=== PATIENT | female | born 1955 ===

== ENCOUNTER 2023-02-24 08:00 | Inpatient (IN) | payer MEDICARE, BC ==
[2023-02-27] MEDS ORDERED: Bacitracin Zinc Ointment 30 gm TUBE ONE (06:07)
[2023-02-27] MEDS ORDERED: EPINEPHrine 1 MG/ML AMP ONE (06:07)
[2023-02-27] MEDS ORDERED: Thrombin 5000 UNITS/5 ML VIAL ONE ×3 (06:07→08:26)
[2023-02-27] MEDS ORDERED: Lidocaine 1% (PF) 30 ML VIAL ONE (06:07)
[2023-02-27] MEDS ORDERED: Lidocaine 1% MPF 2 ML VIAL ONE (06:38)
[2023-02-27] MEDS ORDERED: Lidocaine 2% 6 ML (Jelly) SYR ONE (06:50)
[2023-02-27] MEDS ORDERED: Fentanyl 250 MCG/5 ML VIAL ONE (06:50)
[2023-02-27] MEDS ORDERED: SUGAMMADEX SODIUM 200 MG/2 ML VIAL ONE (06:50)
[2023-02-27] MEDS ORDERED: Clindamycin/D5W 900 mg/50 ml Premix Bag ONE (06:55)
[2023-02-27] MEDS ORDERED: LevoFLOXacin 500 mg/D5W 100 ML BAG ONE (06:55)
[2023-02-27] MEDS ORDERED: Phenylephrine 10 MG/ML VIAL ONE (06:55)
[2023-02-27] MEDS ORDERED: Dexamethasone 20 MG/5 ML VIAL ONE (07:20)
[2023-02-27] MEDS ORDERED: NEOSTIGMINE 3 MG/3 ML SYR 3 MG/3 ML SYRINGE ONE (07:20)
[2023-02-27] MEDS ORDERED: Glycopyrrolate 0.2 MG/ML 5 ML SYRINGE ONE (07:20)
[2023-02-27] MEDS ORDERED: PROPOFOL 200 MG/20 ML VIAL ONE (07:20)
[2023-02-27] MEDS ORDERED: Rocuronium Bromide 10 MG/ML (10ML VIAL) ONE (07:20)
[2023-02-27] MEDS ORDERED: Ondansetron PF 4 MG/2 ML Vial ONE ×2 (07:20→09:46)
[2023-02-27] MEDS ORDERED: ePHEDrine Sulfate 50 MG/10 ML VIAL ONE (07:20)
[2023-02-27] MEDS ORDERED: hydrALAZINE 20 MG/ML VIAL SLOW IVP PRN (09:56)
[2023-02-27] MEDS ORDERED: Ondansetron PF 4 MG/2 ML Vial IVP PRN (09:56)
[2023-02-27] MEDS ORDERED: diphenhydrAMINE 50 MG/ML VIAL IVP PRN (09:56)
[2023-02-27] MEDS ORDERED: Labetalol HCl 100 MG/20 ML VIAL SLOW IVP PRN (09:56)
[2023-02-27] MEDS ORDERED: Acetaminophen 325 MG TAB PO PRN (09:56)
[2023-02-27] MEDS ORDERED: Morphine 2 MG/ML VIAL SLOW IVP PRN (09:56)
[2023-02-27] MEDS: Sodium Chloride 0.9% 1,000 ML IV SCH ×2 (12:39→23:55)
[2023-02-27 12:57] VITALS: BMI 21.0
[2023-02-27] MEDS: Dexamethasone 1 MG TAB PO SCH ×2 (14:56→20:52)
[2023-02-27] MEDS: Clindamycin 150 MG CAP PO SCH ×2 (15:30→20:52)
[2023-02-27] MEDS ORDERED: Electrolyte Replacement Protocol 1 EACH FS SCH (18:30)
[2023-02-27 18:39] LABS: Anion Gap 14 mmol/L (10-20); BUN (Urea Nitrogen) 12 mg/dL (9.8-20.1); Calc. Creatinine Clearance 60 mL/min (70-130); Calcium 9.2 mg/dL (7.8-10.44); Carbon Dioxide 24 mmol/L (23-31); Chloride 105 mmol/L (98-107); Estimated GFR 84; Glucose 166 mg/dL (80-115); Potassium 3.7 mmol/L (3.5-5.1); Sodium 139 mmol/L (136-145)
[2023-02-27] MEDS: Famotidine/PF 20 mg/2ml Vial SLOW IVP SCH (20:52)
[2023-02-27] MEDS: levETIRAcetam 500 MG TAB PO SCH (20:52)
[2023-02-27] MEDS ORDERED: Phenytoin Extended Release 100 MG CAP PO SCH (21:00)
[2023-02-28 04:13] VITALS: TEMP 98.6
[2023-02-28] MEDS: Dexamethasone 1 MG TAB PO SCH (05:49)
[2023-02-28] MEDS: Clindamycin 150 MG CAP PO SCH (05:49)
[2023-02-28 07:10] LABS: Chloride 105 mmol/L (98-107); Potassium 4.1 mmol/L (3.5-5.1); Sodium 138 mmol/L (136-145)
[2023-02-28 07:11] LABS: Glucose 118 mg/dL (80-115)
[2023-02-28 07:13] LABS: Anion Gap 12 mmol/L (10-20); Carbon Dioxide 25 mmol/L (23-31)
[2023-02-28 07:15] LABS: Calc. Creatinine Clearance 60 mL/min (70-130); Estimated GFR 83
[2023-02-28 07:16] LABS: BUN (Urea Nitrogen) 15 mg/dL (9.8-20.1)
[2023-02-28] MEDS: levETIRAcetam 500 MG TAB PO SCH (08:59)
[2023-02-28] MEDS: Famotidine/PF 20 mg/2ml Vial SLOW IVP SCH (08:59)
[2023-02-28] MEDS ORDERED: CALCIUM PO SCH (09:00)
[2023-02-28] MEDS ORDERED: Calcium Carbonate 600 MG + Vit D TAB PO SCH (09:00)
[2023-02-28] MEDS ORDERED: MINERALS PO SCH (09:00)
[2023-02-28] MEDS ORDERED: VITS D3 PO SCH (09:00)
[2023-02-28] MEDS ORDERED: [UNRECOGNIZED DRUG - OTHER] PO SCH (09:00)
[2023-02-28] MEDS ORDERED: Prenatal Vitamin 1 TAB PO SCH (09:00)
[2023-02-28] MEDS ORDERED: K2 PO SCH (09:00)
[2023-02-28 12:12] VITALS: BP 151/72
== END 2023-02-28 11:20 | disposition home or self-care (01) | DRG 25 ==
LOC: SURG A 02-27 05:34 → EDBD 02-27 08:00 → CCU 02-27 11:50
PROVIDERS: ADMIT Neurological Surgery; ATTEND Neurological Surgery
PROC: 00B Central Nervous System and Cranial Nerves, Excision (ICD-10-PCS; principal; 2023-02-27)
DX: D32.0 Benign neoplasm of cerebral meninges (principal); G93.6 Cerebral edema; M81.0 Age-related osteoporosis without current pathological fracture; Z90.710 Acquired absence of both cervix and uterus; Z98.890 Other specified postprocedural states; Z88.8 Allergy status to other drugs, medicaments and biological substances; Z88.1 Allergy status to other antibiotic agents
CPT/HCPCS: 36415; 70450; 80048; 85027; 86850; 86900; 86901; 88307; 88341; 88342; 88360; C1713; C1876; C1889; J0171; J1100; J1642; J1956; J2001; J2370; J2405; J2704; J3010; J3490; J7050; J8540; S0028